=== PATIENT | male | born 1995 | race African-American/Black ===

== ENCOUNTER 2019-06-09 21:23 | Emergency (ER) | payer SELFPAY ==
[2019-06-09] MEDS ORDERED: ACETAMINOPHEN 325 MG TABLET ONE (21:50)
[2019-06-09] MEDS ORDERED: predniSONE 20 MG TAB ONE (21:58)
[2019-06-09] MEDS ORDERED: AMOXICILLIN TRIHYDR 250 MG CAP ONE (21:58)
[2019-06-09] MEDS ORDERED: NA CHLORIDE 0.9% 1,000 ML ONE (23:24)
[2019-06-09 23:52] LABS: Absolute Lymphocytes (CBC) 1.6 K/uL (0.7-4.9); Basophils % 0.3 % (0-1.3); Hematocrit 42.9 % (39.6-49.0); Lymphocytes % 13.9 % (15.3-44.8); MPV 8.8 fL (7.6-11.3)
[2019-06-10 00:02] LABS: Albumin 3.7 g/dL (3.4-5.0); Bilirubin Total 0.9 mg/dL (0.2-1.0); Potassium 3.4 mmol/L (3.5-5.1); Protein, Total 7.6 g/dL (6.4-8.2)
[2019-06-10] MEDS ORDERED: CEFTRIAXONE/SWI 1gm 1 GM/10 ML SYR ONE (02:15)
--- NOTE | 2019-06-10 04:18 | ER ---
Nurse's Notes [facility] Name: Abe Rendon Age: 24 yrs Sex: Male : 1995 Arrival Date: 06/09/2019 Time: 21:28 Bed 25 Private MD: Diagnosis: Bilateral Tonsilitis Presentation: 06/09 21:28 Presenting complaint: Patient states: sore throat for 2 days. Transition of care: la1 patient was not received from another setting of care. Onset of symptoms was June 09, 2019. Risk Assessment: Do you want to hurt yourself or someone else? Patient reports no desire to harm self or others. Initial Sepsis Screen: Does the patient meet any 2 criteria? No. Patient's initial sepsis screen is negative. Does the patient have a suspected source of infection? No. Patient's initial sepsis screen is negative. Care prior to arrival: None. 21:28 Method Of Arrival: Ambulatory la1 21:28 Acuity: RYAN 4 la1 Historical: - Allergies: 21:29 No Known Allergies; la1 - PMHx: 21:29 None; la1 - Immunization history:: Adult Immunizations up to date. - Social history:: Smoking status: Patient/guardian denies using tobacco. - Ebola Screening: : No symptoms or risks identified at this time. Screenin:35 Abuse screen: Denies threats or abuse. Denies injuries from another. Nutritional ca1 screening: No deficits noted. Tuberculosis screening: No symptoms or risk factors identified. Fall Risk None identified. Assessment: 21:35 General: Appears in no apparent distress. comfortable, Behavior is calm, cooperative, ca1 appropriate for age. Pain: Complains of pain in neck Pain currently is 8 out of 10 on a pain scale. Pain began 2-3 days ago. Neuro: Level of Consciousness is awake, alert, obeys commands, Oriented to person, place, time, situation. Cardiovascular: Heart tones S1 S2 present Capillary refill < 3 seconds Patient's skin is warm and dry. Pulses are all present. Respiratory: Airway is patent Respiratory effort is even, unlabored, Respiratory pattern is regular, symmetrical, Breath sounds are clear bilaterally. GI: Abdomen is flat, non-distended, Bowel sounds present X 4 quads. Abd is soft and non tender X 4 quads. : No deficits noted. No signs and/or symptoms were reported regarding the genitourinary system. EENT: Throat is reddened has enlarged tonsils bilaterally with gag reflex present. Derm: Skin is intact, is healthy with good turgor, Skin is pink, warm \T\ dry. Musculoskeletal: Circulation, motion, and sensation intact. Capillary refill < 3 seconds, Range of motion: intact in all extremities. 22:16 Reassessment: Patient appears in no apparent distress at this time. Patient and/or ca1 family updated on plan of care and expected duration. Pain level reassessed. Patient is alert, oriented x 3, equal unlabored respirations, skin warm/dry/pink. 06/10 00:58 Reassessment: Patient appears in no apparent distress at this time. Patient and/or rv family updated on plan of care and expected duration. Pain level reassessed. Patient is alert, oriented x 3, equal unlabored respirations, skin warm/dry/pink. Patient states feeling better. Vital Signs: 06/09 21:29 BP 120 / 78; Pulse 81; Resp 16; Temp 100.2; Pulse Ox 100% on R/A; Weight 88.45 kg; la1 22:16 BP 115 / 75; Pulse 79; Resp 17 S; Temp 98.6(O); Pulse Ox 100% on R/A; ca1 06/10 00:58 BP 120 / 89; Pulse 76; Resp 16; Temp 98(O); Pulse Ox 100% on R/A; rv ED Course: 06/09 21:28 Patient arrived in ED. ds1 21:29 Triage completed. la1 21:30 Arm band placed on right wrist. la1 21:33 Leanne Macdonald, RN is Primary Nurse. ca1 21:35 Patient has correct armband on for positive identification. Bed in low position. Call ca1 light in reach. Side rails up X 1. Pulse ox on. NIBP on. Warm blanket given. 21:35 No provider procedures requiring assistance completed. ca1 21:46 Kalen Arzate MD is Attending Physician. gs 22:23 Strep swab sent to lab. recollect of strep swab. ca1 23:27 Inserted saline lock: 20 gauge in left forearm, using aseptic technique. Blood rv collected. 06/10 01:25 CT completed. Patient tolerated procedure well. Patient moved to CT via wheelchair. Patient moved back from CT. 04:23 Soft Tissue Neck W/Contr In Process Unspecified. EDMS Administered Medications: 06/09 21:53 Drug: Tylenol 650 mg Route: PO; ca1 22:00 Drug: predniSONE 40 mg Route: PO; ca1 22:00 Drug: Amoxicillin 1000 mg Route: PO; ca1 23:26 Drug: NS 0.9% 1000 ml {Note: i.} Route: IV; Rate: 1 bolus; Site: left forearm; rv Outcome: 06/10 03:33 Discharge ordered by . 03:33 Patient left the ED. fc Signatures: Dispatcher [employer] EDMS [place] Nance Felicia RN RN Bekah Luna ds1 Teo Overton RN RN laKalen Soni MD MD gs Vicente, Ronaldo, RN RN rv Leanne Macdonald RN RN ca1 Corrections: (The following items were deleted from the chart) 06/09 23:27 21:35 Patient did not have IV access during this emergency room visit. ca1 rv
--- NOTE | 2019-06-10 04:18 | EDPHYS ---
Physician Documentation [facility] Name: Abe Rendon Age: 24 yrs Sex: Male : 1995 Arrival Date: 06/09/2019 Time: 21:28 Bed 25 Private MD: ED Physician Kalen Arzate HPI: 06/10 01:15 This 24 yrs old Black Male presents to ER via Ambulatory with complaints of Sore Throat.gs 01:15 The patient presents with sore throat, dysphagia. The patient describes throat pain as gs raw. Onset: The symptoms/episode began/occurred 2 day(s) ago. Severity of symptoms: At their worst the symptoms were severe, in the emergency department the symptoms are unchanged. Modifying factors: The symptoms are alleviated by over the counter medications, the symptoms are aggravated by foods, Patient's oral intake status: good. Associated signs and symptoms: Pertinent positives: fever. The patient has not experienced similar symptoms in the past. The patient has not recently seen a physician. Historical: - Allergies: 06/09 21:29 No Known Allergies; la1 - PMHx: 21:29 None; la1 - Immunization history:: Adult Immunizations up to date. - Social history:: Smoking status: Patient/guardian denies using tobacco. - Ebola Screening: : No symptoms or risks identified at this time. ROS: 06/10 01:15 All other systems are negative. gs Exam: 01:15 Head/Face: Normocephalic, atraumatic. Eyes: Pupils equal round and reactive to light, gs extra-ocular motions intact. Lids and lashes normal. Conjunctiva and sclera are non-icteric and not injected. Cornea within normal limits. Periorbital areas with no swelling, redness, or edema. Neck: Trachea midline, no thyromegaly or masses palpated, and no cervical lymphadenopathy. Supple, full range of motion without nuchal rigidity, or vertebral point tenderness. No Meningismus. Chest/axilla: Normal chest wall appearance and motion. Nontender with no deformity. No lesions are appreciated. Respiratory: Lungs have equal breath sounds bilaterally, clear to auscultation and percussion. No rales, rhonchi or wheezes noted. No increased work of breathing, no retractions or nasal flaring. Abdomen/GI: Soft, non-tender, with normal bowel sounds. No distension or tympany. No guarding or rebound. No evidence of tenderness throughout. Back: No spinal tenderness. No costovertebral tenderness. Full range of motion. Skin: Warm, dry with normal turgor. Normal color with no rashes, no lesions, and no evidence of cellulitis. MS/ Extremity: Pulses equal, no cyanosis. Neurovascular intact. Full, normal range of motion. Neuro: Awake and alert, GCS 15, oriented to person, place, time, and situation. Cranial nerves II-XII grossly intact. Motor strength 5/5 in all extremities. Sensory grossly intact. Cerebellar exam normal. Normal gait. 01:15 Constitutional: The patient appears alert, awake. 01:15 ENT: TM's: are normal, Posterior pharynx: Tonsils: bilaterally enlarged, with erythema, with exudate, swelling, Voice: is hoarse. Vital Signs: 06/09 21:29 BP 120 / 78; Pulse 81; Resp 16; Temp 100.2; Pulse Ox 100% on R/A; Weight 88.45 kg; la1 22:16 BP 115 / 75; Pulse 79; Resp 17 S; Temp 98.6(O); Pulse Ox 100% on R/A; ca1 06/10 00:58 BP 120 / 89; Pulse 76; Resp 16; Temp 98(O); Pulse Ox 100% on R/A; rv MDM: 06/09 21:59 Patient medically screened. 06/10 01:15 Differential diagnosis: group A strep tonsillitis, mononucleosis, pharyngitis, gs retropharyngeal abcess. Data reviewed: vital signs, nurses notes, lab test result(s), radiologic studies. Counseling: I had a detailed discussion with the patient and/or guardian regarding: the historical points, exam findings, and any diagnostic results supporting the discharge/admit diagnosis, lab results, radiology results, the need for outpatient follow up. Response to treatment: the patient's symptoms have markedly improved after treatment, patient is well hydrated. 06/09 21:58 Order name: Group A Streptococcus Rapid Sc; Complete Time: 22:18 EDMS 06/09 22:44 Order name: Group A Streptococcus Rapid Sc; Complete Time: 22:48 EDIA 06/09 22:48 Order name: CBC with Diff; Complete Time: 00:35 06/09 22:48 Order name: [place] Screen Profile; Complete Time: 00:35 06/09 22:48 Order name: CMP; Complete Time: 00:35 06/09 23:01 Order name: Throat Culture EDIA 06/10 00:55 Order name: Soft Tissue Neck W/Contr EDMS Administered Medications: 06/09 21:53 Drug: Tylenol 650 mg Route: PO; ca1 22:00 Drug: predniSONE 40 mg Route: PO; ca1 22:00 Drug: Amoxicillin 1000 mg Route: PO; ca1 23:26 Drug: NS 0.9% 1000 ml {Note: i.} Route: IV; Rate: 1 bolus; Site: left forearm; rv Disposition: 06/10/19 03:33 Discharged to Home. Impression: Bilateral Tonsilitis. - Condition is Stable. Signatures: Dispatcher [employer] EDJaimie Barclay RN RN fc Teo Overton RN RN laKalen Soni MD MD Lit Marie RN RN rv AcobLeanne RN RN ca1 Corrections: (The following items were deleted from the chart) 06/10 03:33 03:33 06/10/2019 03:33 Discharged to Home. Impression: Bilateral Tonsilitis. Condition fc is Stable. Forms are Medication Reconciliation Form, Thank You Letter, Antibiotic Education, Prescription Opioid Use. fc
[2019-06-10 04:46] VITALS: O2SAT 100
[2019-06-10 04:55] VITALS: BP 120/89; TEMP 98
--- NOTE | 2019-06-10 11:32 | RAD REPORT ---
EXAM DESCRIPTION: CT - Soft Tissue Neck W/Contr - 06/10/2019 5:54 am CLINICAL HISTORY: The patient is 24 years old and is Male; pharyngitis TECHNIQUE: Axial computed tomography images of the neck with intravenous contrast. Sagittal and co fabi reformatted images were created and reviewed. This CT exam was performed using one or more of the following dose reduction techniques: automated exposure control, adjustment of the mA and/or k V according to patient size, and/or use of iterative reconstruction technique. COMPARISON: No relevant prior studies available. FINDINGS: OROPHARYNX: Enlargement of the palatine tonsils bilaterally is noted. A tiny 0.7 x 0.5 cm low attenuating focus within the left palatine tonsil is present with surrounding edema. HYPOPHARYNX: Unremarkable. LARYNX: Unremarkable. Normal epiglottis. TRACHEA: Unremarkable. RETROPHARYNGEAL SPACE: Unremarkable. SUBMANDIBULAR/PAROTID GLANDS: Unremarkable. Glands are normal in size. THYROID: Unremarkable. No enlarged or calcified nodules. BONES/JOINTS: No acute fracture. SOFT TISSUES: The soft tissues are normal. VASCULATURE: Unremarkable. Normal in course and caliber. LYMPH NODES: Enlarged bilateral cervical chain lymph nodes are present. LUNG APICES: Subtle linear opacity within the left lung apex is noted which may be secondary to scarring versus atelectasis. IMPRESSION: 1. Findings suggestive of bilateral tonsillitis involving the palatine tonsils with li namita small developing phlegmon on the left. 2. Reactive adenopathy. Electronically signed by: Jessica Sánchez MD 06/10/2019 1:43 AM CDT Due to temporary technical issues with the PACS/Fluency reporting system, reports are being signed by the in house radiologist as a courtesy to ensure prompt reporting. The interpreting radiologist is f ully responsible for the content of the report.
== END 2019-06-10 03:33 | disposition home or self-care (01) ==
LOC: ER 21:23
DX: J03.90 Acute tonsillitis, unspecified (principal)
CPT/HCPCS: 36415; 70491; 80053; 85025; 86308; 87070; 87081; 99284; J0696; J7030; J7512; Q9967

== ENCOUNTER 2019-06-30 14:19 | Emergency (ER) | payer SELFPAY ==
[2019-06-30] MEDS ORDERED: dexAMETHasone 10 MG/ML VIAL ONE (15:17)
[2019-06-30] MEDS ORDERED: CLINDAMYCIN 600MG/D5W 600 MG/50 ML BAG IV ONE (15:18)
[2019-06-30] MEDS ORDERED: FENTANYL CITR 100 MCG/2 ML ONE (15:18)
[2019-06-30] MEDS ORDERED: NA CHLORIDE 0.9% 1,000 ML ONE (15:18)
[2019-06-30] MEDS ORDERED: KETOROLAC 30 MG/ML INJ ONE (15:58)
[2019-06-30] MEDS ORDERED: LIDOCAINE 1% MPF 5 ML VIAL ONE (17:47)
[2019-06-30] MEDS ORDERED: LIDOCAINE VISCOUS 2% SOLN 15 ML UDC ONE (18:09)
--- NOTE | 2019-06-30 18:38 | ER ---
Nurse's Notes [facility] Name: Abe Rendon Age: 24 yrs Sex: Male : 1995 Arrival Date: 06/30/2019 Time: 14:22 Bed 15 Private MD: Diagnosis: Peritoneal abscess;Dysphagia, oropharyngeal phase Presentation: 06/30 14:32 Presenting complaint: Sore throat and difficulty swallowing x 2 days. Transition of hb care: patient was not received from another setting of care. Onset of symptoms was June 29, 2019. Risk Assessment: Do you want to hurt yourself or someone else? Patient reports no desire to harm self or others. Initial Sepsis Screen: Does the patient meet any 2 criteria? No. Patient's initial sepsis screen is negative. Does the patient have a suspected source of infection? No. Patient's initial sepsis screen is negative. Care prior to arrival: None. 14:32 Method Of Arrival: Ambulatory hb 14:32 Acuity: RYAN 3 hb Historical: - Allergies: 14:33 No Known Allergies; hb - Home Meds: 14:33 None [Active]; hb - PMHx: 14:33 None; hb - PSHx: 14:33 None; hb - Immunization history:: Adult Immunizations up to date. - Social history:: Smoking status: Patient/guardian denies using tobacco. - Ebola Screening: : No symptoms or risks identified at this time. Screenin:35 Abuse screen: Denies threats or abuse. Nutritional screening: No deficits noted. rb1 Tuberculosis screening: No symptoms or risk factors identified. Fall Risk None identified. Assessment: 14:35 General: Appears uncomfortable, Behavior is calm, cooperative, Denies fever. Pain: rb1 Complains of pain in throat Pain currently is 10 out of 10 on a pain scale. Pain began 2-3 days ago. Neuro: Level of Consciousness is awake, alert, obeys commands, Oriented to person, place, time, situation. Cardiovascular: Capillary refill < 3 seconds is brisk in bilateral fingers. Respiratory: Airway is patent Respiratory effort is even, unlabored, Respiratory pattern is regular, symmetrical, Breath sounds are clear bilaterally. GI: No signs and/or symptoms were reported involving the gastrointestinal system. : No signs and/or symptoms were reported regarding the genitourinary system. EENT: Throat has enlarged tonsils. Derm: Skin is dry, Skin is normal, Skin temperature is warm. 14:35 EENT: Reports pain when swallowing. rb1 15:59 Reassessment: Patient appears in no apparent distress at this time. Patient and/or rb1 family updated on plan of care and expected duration. Pain level reassessed. Patient is alert, oriented x 3, equal unlabored respirations, skin warm/dry/pink. 16:50 Reassessment: Patient appears in no apparent distress at this time. No changes from rb1 previously documented assessment. 17:45 Reassessment: Patient appears in no apparent distress at this time. Patient and/or rb1 family updated on plan of care and expected duration. Pain level reassessed. Patient is alert, oriented x 3, equal unlabored respirations, skin warm/dry/pink. 18:40 Reassessment: Patient appears in no apparent distress at this time. No changes from rb1 previously documented assessment. Vital Signs: 14:33 BP 131 / 87; Pulse 89; Resp 16; Temp 98.9; Pulse Ox 100% on R/A; Weight 86.18 kg; hb Height 6 ft. 2 in. (187.96 cm); Pain 7/10; 15:30 BP 129 / 89; Pulse 65; Resp 17; Temp 98.8(O); Pulse Ox 99% on R/A; Pain 5/10; rb1 16:29 BP 118 / 77; Pulse 65; Resp 16; Pulse Ox 99% on R/A; Pain 5/10; rb1 17:25 BP 123 / 75; Pulse 84; Resp 16; Pulse Ox 99% on R/A; rb1 18:20 BP 122 / 74; Pulse 84; Resp 17; Temp 98.7(O); Pulse Ox 100% ; Pain 4/10; rb1 14:33 Body Mass Index 24.39 (86.18 kg, 187.96 cm) hb ED Course: 14:22 Patient arrived in ED. mr 14:33 Triage completed. hb 14:33 Arm band placed on. hb 14:42 Melody Ng, RN is Primary Nurse. rb1 14:44 [facility]ile[facility] Martin [facility]C [facility]. snw 14:44 Abilio Awad MD is Attending Physician. snw 15:18 Strep swab sent to lab. Inserted saline lock: 22 gauge in right antecubital area, using jp3 aseptic technique. Patient maintains SpO2 saturation greater than 95% on room air. 15:19 Bed in low position. Call light in reach. Side rails up X 1. Side rails up X2. Verbal jp3 reassurance given. Pulse ox on. NIBP on. 19:02 No provider procedures requiring assistance completed. IV discontinued, intact, rb1 bleeding controlled, No redness/swelling at site. Pressure dressing applied. Administered Medications: 15:25 Drug: Clindamycin 600 mg Route: IVPB; Infused Over: 30 mins; Site: right antecubital; rb1 15:56 Follow up: Response: No adverse reaction; IV Status: Completed infusion rb1 15:25 Drug: NS 0.9% 1000 ml Route: IV; Rate: 1 bolus; Site: right antecubital; rb1 15:25 Drug: Decadron - Dexamethasone 10 mg Route: IVP; Site: right antecubital; rb1 15:40 Follow up: Response: No adverse reaction rb1 15:25 Drug: fentaNYL (PF) 25 mcg Route: IVP; Site: right antecubital; rb1 15:40 Follow up: Response: No adverse reaction; Pain is decreased rb1 15:59 Drug: TORadol - Ketorolac 15 mg Route: IVP; Site: right antecubital; rb1 16:14 Follow up: Response: No adverse reaction; Pain is decreased rb1 17:49 Drug: Lidocaine (1 %) 5 mg Route: Infiltration; rb1 Outcome: 18:36 Discharge ordered by . snw 19:02 Patient left the ED. rb1 19:02 Discharged to home ambulatory. rb1 19:02 Condition: stable 19:02 Discharge instructions given to patient, Instructed on discharge instructions, follow up and referral plans. medication usage, Demonstrated understanding of instructions, follow-up care, medications, Prescriptions given X 3. Signatures: Aileen Martin, LAUREANO TRADING ASSISTANT-Hubert ZavaletaaBeatris Melody Ng, RN RN rb1 Rizwana Quach RN RN hb Riki Henry jp3 Corrections: (The following items were deleted from the chart) 18:04 14:32 Acuity: RYAN 4 hb hb
--- NOTE | 2019-06-30 18:39 | EDPHYS ---
Physician Documentation [facility] Name: Abe Rendon Age: 24 yrs Sex: Male : 1995 Arrival Date: 06/30/2019 Time: 14:22 Bed 15 Private MD: ED Physician Abilio Awad HPI: 06/30 16:33 This 24 yrs old Black Male presents to ER via Ambulatory with complaints of Sore Throat.snw 16:33 The patient presents with sore throat. The patient describes throat pain as constant, snw suffocating. Onset: The symptoms/episode began/occurred suddenly, 2 day(s) ago. Severity of symptoms: At their worst the symptoms were moderate, severe. Associated signs and symptoms: The patient has no apparent associated signs or symptoms. The patient has experienced similar episodes in the past. The patient has not recently seen a physician. Historical: - Allergies: 14:33 No Known Allergies; hb - Home Meds: 14:33 None [Active]; hb - PMHx: 14:33 None; hb - PSHx: 14:33 None; hb - Immunization history:: Adult Immunizations up to date. - Social history:: Smoking status: Patient/guardian denies using tobacco. - Ebola Screening: : No symptoms or risks identified at this time. ROS: 16:31 Eyes: Negative for injury, pain, redness, and discharge, Neck: Negative for injury, snw pain, and swelling, Cardiovascular: Negative for chest pain, palpitations, and edema, Respiratory: Negative for shortness of breath, cough, wheezing, and pleuritic chest pain, Abdomen/GI: Negative for abdominal pain, nausea, vomiting, diarrhea, and constipation, Back: Negative for injury and pain, : Negative for injury, bleeding, discharge, and swelling, MS/Extremity: Negative for injury and deformity, Skin: Negative for injury, rash, and discoloration, Neuro: Negative for headache, weakness, numbness, tingling, and seizure, Psych: Negative for depression, anxiety, suicide ideation, homicidal ideation, and hallucinations. 16:31 Constitutional: Positive for body aches, fever, malaise, poor PO intake. 16:31 ENT: Positive for sore throat. Exam: 16:27 Head/Face: Normocephalic, atraumatic. Eyes: Pupils equal round and reactive to light, snw extra-ocular motions intact. Lids and lashes normal. Conjunctiva and sclera are non-icteric and not injected. Cornea within normal limits. Periorbital areas with no swelling, redness, or edema. 16:27 Neck: Trachea midline, no thyromegaly or masses palpated, and no cervical lymphadenopathy. Supple, full range of motion without nuchal rigidity, or vertebral point tenderness. No Meningismus. Chest/axilla: Normal chest wall appearance and motion. Nontender with no deformity. No lesions are appreciated. Cardiovascular: Regular rate and rhythm with a normal S1 and S2. No gallops, murmurs, or rubs. Normal PMI, no JVD. No pulse deficits. Respiratory: Lungs have equal breath sounds bilaterally, clear to auscultation and percussion. No rales, rhonchi or wheezes noted. No increased work of breathing, no retractions or nasal flaring. Abdomen/GI: Soft, non-tender, with normal bowel sounds. No distension or tympany. No guarding or rebound. No evidence of tenderness throughout. Back: No spinal tenderness. No costovertebral tenderness. Full range of motion. Skin: Warm, dry with normal turgor. Normal color with no rashes, no lesions, and no evidence of cellulitis. MS/ Extremity: Pulses equal, no cyanosis. Neurovascular intact. Full, normal range of motion. Neuro: Awake and alert, GCS 15, oriented to person, place, time, and situation. Cranial nerves II-XII grossly intact. Motor strength 5/5 in all extremities. Sensory grossly intact. Cerebellar exam normal. Normal gait. Psych: Awake, alert, with orientation to person, place and time. Behavior, mood, and affect are within normal limits. 16:27 Constitutional: The patient appears alert, awake, listless. 16:27 ENT: TM's: are normal, Nose: is normal, Mouth: is normal, Posterior pharynx: Airway: patent, Tonsils: enlarged on the right, +CHARGE HAND, uvula deviated to left, Uvula: erythema, swelling, that is moderate, mild trismus, Voice: is muffled. Vital Signs: 14:33 BP 131 / 87; Pulse 89; Resp 16; Temp 98.9; Pulse Ox 100% on R/A; Weight 86.18 kg; hb Height 6 ft. 2 in. (187.96 cm); Pain 7/10; 15:30 BP 129 / 89; Pulse 65; Resp 17; Temp 98.8(O); Pulse Ox 99% on R/A; Pain 5/10; rb1 16:29 BP 118 / 77; Pulse 65; Resp 16; Pulse Ox 99% on R/A; Pain 5/10; rb1 17:25 BP 123 / 75; Pulse 84; Resp 16; Pulse Ox 99% on R/A; rb1 18:20 BP 122 / 74; Pulse 84; Resp 17; Temp 98.7(O); Pulse Ox 100% ; Pain 4/10; rb1 14:33 Body Mass Index 24.39 (86.18 kg, 187.96 cm) hb Procedures: 18:43 I \T\ D: Incision and drainage was performed for an abscess of the right peritonsillar snw area. Anesthetized with 5 ml's 1% Lidocaine. Incised with 18g needle. Drained small amount bloody fluid. the patient tolerated the procedure well, procedure per Dr. Campos. MDM: 14:53 Patient medically screened. [facility] 18:43 Data reviewed: vital signs, nurses notes. Data interpreted: Pulse oximetry: on room air snw is 99 %. Interpretation: normal. Counseling: I had a detailed discussion with the patient and/or guardian regarding: the historical points, exam findings, and any diagnostic results supporting the discharge/admit diagnosis, lab results, the need for outpatient follow up, to return to the emergency department if symptoms worsen or persist or if there are any questions or concerns that arise at home, Return in 48 hours for reassessment. Response to treatment: the patient's symptoms have markedly improved after treatment. Special discussion: Based on the history and exam findings, there is no indication for further emergent testing or inpatient evaluation. I discussed with the patient/guardian the need to see the ENT specialist for further evaluation of the symptoms. I discussed with the patient/guardian the need to see the primary care provider for further evaluation of the symptoms. 06/30 14:44 Order name: Strep; Complete Time: 15:39 snw 06/30 15:37 Order name: Throat Culture EDMS 06/30 17:32 Order name: Misc. Order: lidocaine 1% 3ml in 3ml NS - nebulized on 6-8L flowrate; snw Complete Time: 17:50 Administered Medications: 15:25 Drug: Clindamycin 600 mg Route: IVPB; Infused Over: 30 mins; Site: right antecubital; rb1 15:56 Follow up: Response: No adverse reaction; IV Status: Completed infusion rb1 15:25 Drug: NS 0.9% 1000 ml Route: IV; Rate: 1 bolus; Site: right antecubital; rb1 15:25 Drug: Decadron - Dexamethasone 10 mg Route: IVP; Site: right antecubital; rb1 15:40 Follow up: Response: No adverse reaction rb1 15:25 Drug: fentaNYL (PF) 25 mcg Route: IVP; Site: right antecubital; rb1 15:40 Follow up: Response: No adverse reaction; Pain is decreased rb1 15:59 Drug: TORadol - Ketorolac 15 mg Route: IVP; Site: right antecubital; rb1 16:14 Follow up: Response: No adverse reaction; Pain is decreased rb1 17:49 Drug: Lidocaine (1 %) 5 mg Route: Infiltration; rb1 Disposition: 07/01 06:37 Co-signature as Attending Physician, Abilio Awad MD I agree with the assessment and grazyna plan of care. Disposition: 06/30/19 18:36 Discharged to Home. Impression: Peritoneal abscess, Dysphagia, oropharyngeal phase. - Condition is Stable. - Discharge Instructions: Dysphagia, Peritonsillar Abscess, Rehydration, Adult. - Prescriptions for Clindamycin HCl 300 mg Oral Capsule - take 1 capsule by ORAL route every 8 hours for 10 days; 30 capsule. Prednisone 20 mg Oral Tablet - take 2 tablet by ORAL route once daily for 5 days; 10 tablet. acetaminophen- codeine 120-12 mg/5 mL Oral Suspension - take 10 milliliters by ORAL route every 6 hours As needed; 120 milliliter. - Work release form, Medication Reconciliation Form, Thank You Letter, Antibiotic Education, Prescription Opioid Use form. - Follow up: Private Physician; When: 2 - 3 days; Reason: Recheck today's complaints, Continuance of care, Re-evaluation by your physician. Follow up: Emergency Department; When: 48 Hours; Reason: reassessment of posterior pharynx. - Notes: Please return to ER immediately for worsening symptoms. Addendum: 07/03/2019 16:33 Addendum: In review of the chart in an attempt to call and check on Patient, I noted s nw the discharge diagnosis. I intended to dx pt with peritonsillar abscess on the discharge paperwork and mistakenly put peritoneal abscess.. Signatures: Dispatcher [employer] EDAbilio Sloan MD MD cha Therrien, Shelly, AGRICULTURE RESEARCH DIRECTOR-C AGRICULTURE RESEARCH DIRECTOR-Csnw Melody Ng, RN RN rb1 Rizwana Quach RN RN Corrections: (The following items were deleted from the chart) 06/30 18:46 18:43 I \T\ D: Incision and drainage was performed for an abscess of the right snw peritonsillar area. Anesthetized with 5 ml's 1% Lidocaine. Incised with 18g needle. Drained small amount bloody fluid. the patient tolerated the procedure well, snw 19:02 18:36 06/30/2019 18:36 Discharged to Home. Impression: Peritoneal abscess; Dysphagia, rb1 oropharyngeal phase. Condition is Stable. Forms are Medication Reconciliation Form, Thank You Letter, Antibiotic Education, Prescription Opioid Use. Follow up: Private Physician; When: 2 - 3 days; Reason: Recheck today's complaints, Continuance of care, Re-evaluation by your physician. Follow up: Emergency Department; When: 48 Hours; Reason: reassessment of posterior pharynx. snw
[2019-06-30 19:40] VITALS: TEMP 98.8; O2SAT 99
[2019-06-30 19:41] VITALS: BP 118/77
== END 2019-06-30 19:02 | disposition home or self-care (01) ==
LOC: ER 14:19
DX: R13.12 Dysphagia, oropharyngeal phase (principal); K65.1 Peritoneal abscess
CPT/HCPCS: 87070; 87081; 96365; 96375; 99284; J1100; J3010; J7030

== ENCOUNTER 2019-09-08 12:04 | Emergency (ER) | payer SELFPAY ==
[2019-09-08] MEDS ORDERED: dexAMETHasone 4 MG TAB ONE (12:21)
--- NOTE | 2019-09-08 12:23 | EDPHYS ---
Physician Documentation [facility] Name: Abe Rendon Age: 24 yrs Sex: Male : 1995 Arrival Date: 09/08/2019 Time: 12:06 Bed 9 Private MD: ED Physician Babar Taylor HPI: 09/08 12:17 This 24 yrs old Black Male presents to ER via Ambulatory with complaints of Sore Throat.ps1 12:17 patient has had a sore throat for 3 days. No difficulty swallowing or tolerating PO ps1 other than pain. Tried over the counter excedrin for pain. Pain rated as moderate and worse with swallowing . Has lymphadenopathy, tonsil exudates. Historical: - Allergies: 12:09 No Known Allergies; la1 - PMHx: 12:09 None; la1 - Immunization history:: Adult Immunizations up to date. - Social history:: Smoking status: Patient/guardian denies using tobacco. - Ebola Screening: : No symptoms or risks identified at this time. ROS: 12:20 Constitutional: Negative for fever, chills, and weight loss, Eyes: Negative for injury, ps1 pain, redness, and discharge, Cardiovascular: Negative for chest pain, palpitations, and edema, Respiratory: Negative for shortness of breath, cough, wheezing, and pleuritic chest pain, Abdomen/GI: Negative for abdominal pain, nausea, vomiting, diarrhea, and constipation, Skin: Negative for injury, rash, and discoloration, Neuro: Negative for headache, weakness, numbness, tingling, and seizure. 12:20 ENT: Positive for sore throat. Exam: 12:20 Constitutional: This is a well developed, well nourished patient who is awake, alert, ps1 and in no acute distress. Head/Face: Normocephalic, atraumatic. Eyes: Pupils equal round and reactive to light, extra-ocular motions intact. Lids and lashes normal. Conjunctiva and sclera are non-icteric and not injected. Cardiovascular: Regular rate and rhythm. No gallops, murmurs, or rubs. Normal PMI, no JVD. No pulse deficits. Respiratory: Lungs have equal breath sounds bilaterally, clear to auscultation and percussion. No rales, rhonchi or wheezes noted. No increased work of breathing, no retractions or nasal flaring. Abdomen/GI: Soft, non-tender, with normal bowel sounds. No distension or tympany. No guarding or rebound. No evidence of tenderness throughout. Skin: Warm, dry with normal turgor. Normal color with no rashes, no lesions, and no evidence of cellulitis. MS/ Extremity: Pulses equal, no cyanosis. Neurovascular intact. Full, normal range of motion. Neuro: Awake and alert, GCS 15, oriented to person, place, time, and situation. Cranial nerves II-XII grossly intact. Sensory grossly intact. 12:20 ENT: External ear(s): are unremarkable, Nose: is normal, Mouth: is normal, Posterior pharynx: Airway: no evidence of obstruction, Tonsils: bilaterally enlarged, with erythema, with exudate, Uvula: normal, peritonsillar mass, is not appreciated, pooling of secretions, is not appreciated. Vital Signs: 12:09 BP 119 / 76; Pulse 86; Resp 16; Temp 98.0; Pulse Ox 100% on R/A; Weight 86.18 kg; la1 Height 6 ft. 2 in. (187.96 cm); 12:09 Body Mass Index 24.39 (86.18 kg, 187.96 cm) la1 MDM: 12:20 Differential diagnosis: otis-early virus, group A strep tonsillitis, laryngitis, ps1 sierra's angina, peritonsillar abscess chlamydia pharyngitis, neisseria gonorrheoeae pharangitis, Mycoplasma Pharyngitis tonsillitis, viral syndrome. Data reviewed: vital signs, nurses notes, and as a result, I will discharge patient. Counseling: I had a detailed discussion with the patient and/or guardian regarding: the historical points, exam findings, and any diagnostic results supporting the discharge/admit diagnosis, the presence of at least one elevated blood pressure reading (>120/80) during this emergency department visit, the need for outpatient follow up, to return to the emergency department if symptoms worsen or persist or if there are any questions or concerns that arise at home. 12:22 Patient medically screened. ps1 09/08 12:13 Order name: Strep la1 Administered Medications: 12:18 CANCELLED (Other Intervention Used): Decadron 10 mg IM once la1 12: Drug: Decadron 10 mg Route: PO; la1 Disposition: 09/08/19 12:22 Discharged to Home. Impression: Pharyngitis. - Condition is Stable. - Discharge Instructions: Strep Throat. - Prescriptions for Cepacol Sore Throat (jim- men) - take 1 lozenge by ORAL route as directed; 30 lozenge. Anaprox DS 550 mg Oral Tablet - take 1 tablet by ORAL route every 12 hours As needed; 20 tablet. Zithromax Z- Dudley 250 mg Oral Tablet - take 1 tablet by ORAL route as directed for 5 days Day 1 - take two (2) tablets one time. Day 2, 3, 4 , 5 take one (1) tablet once daily.; 6 tablet. - Medication Reconciliation Form, Thank You Letter, Antibiotic Education, Prescription Opioid Use form. - Follow up: Emergency Department; When: As needed; Reason: Fever > 102 F, Trouble breathing, Worsening of condition. Follow up: Private Physician; When: As needed; Reason: Further diagnostic work-up, Recheck today's complaints, Continuance of care, Re-evaluation by your physician. - Problem is new. - Symptoms are unchanged. Signatures: Dispatcher [employer] EDMS Poonam Rendon RN RN iw Teo Overton RN RN la1 Babar Taylor MD MD ps1 Corrections: (The following items were deleted from the chart) 12:18 12:18 Decadron 10 mg IM once ordered. la1 la1 12:34 12:22 09/08/2019 12:22 Discharged to Home. Impression: Pharyngitis. Condition is iw Stable. Forms are Medication Reconciliation Form, Thank You Letter, Antibiotic Education, Prescription Opioid Use. Follow up: Emergency Department; When: As needed; Reason: Fever > 102 F, Trouble breathing, Worsening of condition. Follow up: Private Physician; When: As needed; Reason: Further diagnostic work-up, Recheck today's complaints, Continuance of care, Re-evaluation by your physician. Problem is new. Symptoms are unchanged. ps1
--- NOTE | 2019-09-08 12:23 | ER ---
Nurse's Notes [facility] Name: Abe Rendon Age: 24 yrs Sex: Male : 1995 Arrival Date: 09/08/2019 Time: 12:06 Bed 9 Private MD: Diagnosis: Pharyngitis Presentation: 09/08 12:08 Presenting complaint: Patient states: sore throat for three days, voice is hoarse, la1 painful swallowing. Transition of care: patient was not received from another setting of care. Onset of symptoms was September 08, 2019. Risk Assessment: Do you want to hurt yourself or someone else? Patient reports no desire to harm self or others. Initial Sepsis Screen: Does the patient meet any 2 criteria? No. Patient's initial sepsis screen is negative. Does the patient have a suspected source of infection? No. Patient's initial sepsis screen is negative. Care prior to arrival: None. 12:08 Method Of Arrival: Ambulatory la1 12:08 Acuity: RYAN 3 la1 Historical: - Allergies: 12:09 No Known Allergies; la1 - PMHx: 12:09 None; la1 - Immunization history:: Adult Immunizations up to date. - Social history:: Smoking status: Patient/guardian denies using tobacco. - Ebola Screening: : No symptoms or risks identified at this time. Screenin:13 Abuse screen: Denies threats or abuse. Nutritional screening: No deficits noted. la1 Tuberculosis screening: No symptoms or risk factors identified. Fall Risk None identified. Assessment: 12:10 General: Appears in no apparent distress. Behavior is calm, cooperative. Pain: la1 Complains of pain in sore throat, left cervical neck area. Neuro: Level of Consciousness is awake, alert, obeys commands, Oriented to person, place, time, situation. Cardiovascular: Heart tones S1 S2 present Capillary refill < 3 seconds Patient's skin is warm and dry. Respiratory: Airway is patent Respiratory effort is even, unlabored, Respiratory pattern is regular, symmetrical, Breath sounds are clear bilaterally. GI: No signs and/or symptoms were reported involving the gastrointestinal system. : No signs and/or symptoms were reported regarding the genitourinary system. EENT: Throat is reddened has enlarged tonsils bilaterally with gag reflex present. Vital Signs: 12:09 BP 119 / 76; Pulse 86; Resp 16; Temp 98.0; Pulse Ox 100% on R/A; Weight 86.18 kg; la1 Height 6 ft. 2 in. (187.96 cm); 12:09 Body Mass Index 24.39 (86.18 kg, 187.96 cm) la1 ED Course: 12:06 Patient arrived in ED. as 12:09 Triage completed. la1 12:09 Arm band placed on right wrist. la1 12:13 Patient has correct armband on for positive identification. la1 12:15 Babar Taylor MD is Attending Physician. ps1 12:18 Teo Overton RN is Primary Nurse. la1 12:33 No provider procedures requiring assistance completed. Patient did not have IV access iw during this emergency room visit. Administered Medications: 12:18 CANCELLED (Other Intervention Used): Decadron 10 mg IM once la1 12:26 Drug: Decadron 10 mg Route: PO; la1 Outcome: 12:22 Discharge ordered by MD. ps1 12:33 Discharged to home ambulatory. iw 12:33 Condition: good 12:33 Discharge instructions given to patient, Instructed on discharge instructions, follow up and referral plans. medication usage, Demonstrated understanding of instructions, follow-up care, medications, Prescriptions given X 3. 12:34 Patient left the ED. iw Signatures: Gracia Aldana Irene, RN RN iw Teo Overton RN RN la1 Babar Taylor MD MD ps1 Corrections: (The following items were deleted from the chart) 12:33 12:33 Discharge instructions given to patient, Instructed on discharge instructions, iw follow up and referral plans. medication usage, Demonstrated understanding of instructions, follow-up care, medications, Prescriptions given X 2, iw
[2019-09-08 12:39] VITALS: BP 119/76; TEMP 98; O2SAT 100
== END 2019-09-08 12:34 | disposition home or self-care (01) ==
LOC: ER 12:04
DX: J02.9 Acute pharyngitis, unspecified (principal)
CPT/HCPCS: 87070; 87081; 99283; J8540